=== PATIENT | male | born 1985 | race Two or more races ===

== ENCOUNTER 2022-08-21 22:11 | Emergency (ER) | payer SELFPAY ==
--- OUTSIDE RECORDS SUMMARY | 2022-08-21 22:16 | XMS REPORT | Continuity of Care Document ---
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 based on the EGFR.XX) CKD-EPI 2020 equation thatdo es not use a race coefficient. Additional information can be found at:[id number] cb_ egfr_summary_fl dieter 5.pdf (kidney.o rg) [Automated message] The system which generated this result transmit frances reference range : >=90 ml/min/1.73m2. The reference range was not used to interpret this result as normal/abnormal . BUN/Creatinine Ratio 26 (test code = BCRATIO) Glucose (test code = 104 mg/dL 74-106 N GLU) Calcium (test code = CA) 8.5 mg/dL 8.5-10.1 N Aspartate Amino 24 IU/L 10-34 N Transferase (test code = AST) Alanine Aminotransferase 30 IU/L 12-78 N (test code = ALT) Albumin Level (test code 3.3 g/dL 3.4-5.0 L = ALB) Bilirubin,Total (test 0.3 mg/dL 0.2-1.0 N code = BILIT) Total Protein (test code 6.2 g/dL 6.4-8.2 L = TP) Globulin (test code = 3 GLOB) Albumin/Globulin Ratio 1.1 ratio 1.2-3.0 L (test code = AGRATIO) Alkaline Phosphatase 110 IU/L 45-122 N (test code = ALP) [id number] 03:42:00 Test Item Value Reference Range Interpretation Comments Creatine Kinase (test code = CK) 578 U/L 39-308 H Creatine Kinase MB (test code = 6.4 ng/mL 0.5-3.6 H CKMBR) CKMB % (test code = CKMB%) 1.1 % 0.0-5.0 N Thyroid Stimulating [id number] 03:42:00 Test Item Value Reference Range Interpretation Comments Thyroid Stimulating Hormone (test 1.300 IU/mL 0.358-3.74 N code = TSH) Ethanol [id number] 03:42:00 Test Item Value Reference Range Interpretation Comments Ethanol (test code = ETOH) < 3 mg/dL 3-13 L Complete Blood Count Auto [id number] 03:40:00 Test Item Value Reference Range Interpretation Comments White Blood Count (test code = 8.1 x10 3/uL 4.8-10.8 N WBCT) Red Blood Count (test code = 4.46 x10 6/uL 4.60-6.20 L RBC) Hemoglobin (test code = HGBT) 14.1 g/dL 14.0-18.0 N Hematocrit (test code = HCTT) 41.1 % 38.0-52.0 N Mean Corpuscular Volume (test 92.2 fL 80.0-95.0 N code = MCV) Mean Corpuscular Hemoglobin 31.6 pg 26.0-32.0 N (test code = MCH) Mean Corpuscular HGB Conc (test 34.3 g/dL 31.0-36.0 N code = MCHC) Red Cell Distribution Width 12.5 % 11.5-14.5 N (test code = RDW) Platelet Count (test code = 228 x10 3/uL 140-440 N PLTT) Mean Platelet Volume (test code 10.9 fL 7.5-11.2 N = MPV) Immature Granulocytes % (Auto) 0.4 % (test code = IMMGRAN%) Neutrophils % (Auto) (test code 41.1 % = NE%) Lymphocytes % (Auto) (test code 45.5 % = LY%) Monocytes % (Auto) (test code = 7.5 % MO%) Eosinophils % (Auto) (test code 4.8 % = EO%) Basophils % (Auto) (test code = 0.7 % BA%) Immature Granulocytes # (Auto) 0.03 x10 3/uL (test code = IMMGRAN#) Neutrophils # (Auto) (test code 3.3 x10 3/uL 2.7-7.3 N = NE#) Lymphocytes # (Auto) (test code 3.7 x10 3/uL 0.8-3.5 H = LY#) Monocytes # (Auto) (test code = 0.6 x10 3/uL 0.3-0.9 N MO#) Eosinophils # (Auto) (test code 0.4 x10 3/uL 0.0-0.3 H = EO#) Basophils # (Auto) (test code = 0.1 x10 3/uL 0.0-0.1 N BA#) nRBC Abs (test code = NRBCA) 0 10>3/mcL nRBC Pct (test code = NRBCP) 0 % UA, Urinalysis Rflx Cult/[id number] 03:40:00 Test Item Value Reference Range Interpretation Comments Color,Urine (test code = UCOL) Yellow Yellow Clarity,Urine (test code = UCLAR) Clear Clear PH,Urine (test code = UPH.XX) 6.0 5.0-8.0 Specific [place],Urine (test code = 1.023 SGU 1.005-1.030 N USG) Blood,Urine (test code = UBLD) Negative Negative Protein,Urine (test code = UPRO) Negative Negative Glucose,Urine (UA) (test code = Negative Negative UGLU) Ketones,Urine (test code = UKET) Negative Negative Nitrate,Urine (test code = UNIT) Negative Negative Bilirubin,Urine (test code = UBIL) Negative Negative Urobilinogen,Urine (test code = 1.0 EU/dL Negative UURO) Leukocyte Esterase,Urine (test code Negative Negative = ULEU) Basic Metabolic [id number] 03:40:00 Test Item Value Reference Range Interpretation Comments SODIUM (test code = NA) 138 mmol/L 136-145 N Potassium,K (test code = K) 4.1 mmol/L 3.5-5.1 N Chloride (test code = CL) 106 mmol/L 98-107 N Carbon Dioxide (test code = 27 mmol/L 21-32 N CO2) Anion Gap (test code = GAP) 5 mmol/L 7-16 L Blood Urea Nitrogen (test code 18 mg/dL 7-18 N = BUN) Creatinine (test code = CREATT) 0.8 mg/dL 0.7-1.3 N Creatinine Clr Calc Pharmacy 140.11 mL/min (test code = CRCLPHA) Estimated GFR ( July > 60 mL/min/1.73m2 (test code = EGFRAA) Estimated GFR (Non Afr July > 60 mL/min/1.73m2 (test code = EGFRNAA) BUN/Creatinine Ratio (test code 23 = BCRATIO) Glucose (test code = GLU) 109 mg/dL 74-106 H Calcium (test code = CA) 8.6 mg/dL 8.5-10.1 N Complete Blood Count Auto [id number] 05:52:00 Test Item Value Reference Range Interpretation Comments White Blood Count (test code = 6.6 x10 3/uL 4.8-10.8 N WBCT) Red Blood Count (test code = 4.24 x10 6/uL 4.60-6.20 L RBC) Hemoglobin (test code = HGBT) 12.8 g/dL 14.0-18.0 L Hematocrit (test code = HCTT) 39.2 % 38.0-52.0 N Mean Corpuscular Volume (test 92.5 fL 80.0-95.0 N code = MCV) Mean Corpuscular Hemoglobin 30.2 pg 26.0-32.0 N (test code = MCH) Mean Corpuscular HGB Conc (test 32.7 g/dL 31.0-36.0 N code = MCHC) Red Cell Distribution Width 12.6 % 11.5-14.5 N (test code = RDW) Platelet Count (test code = 206 x10 3/uL 140-440 N PLTT) Mean Platelet Volume (test code 11.7 fL 7.5-11.2 H = MPV) Immature Granulocytes % (Auto) 0.5 % (test code = IMMGRAN%) Neutrophils % (Auto) (test code 40.0 % = NE%) Lymphocytes % (Auto) (test code 45.1 % = LY%) Monocytes % (Auto) (test code = 10.3 % MO%) Eosinophils % (Auto) (test code 3.2 % = EO%) Basophils % (Auto) (test code = 0.9 % BA%) Immature Granulocytes # (Auto) 0.03 x10 3/uL (test code = IMMGRAN#) Neutrophils # (Auto) (test code 2.6 x10 3/uL 2.7-7.3 L = NE#) Lymphocytes # (Auto) (test code 3.0 x10 3/uL 0.8-3.5 N = LY#) Monocytes # (Auto) (test code = 0.7 x10 3/uL 0.3-0.9 N MO#) Eosinophils # (Auto) (test code 0.2 x10 3/uL 0.0-0.3 N = EO#) Basophils # (Auto) (test code = 0.1 x10 3/uL 0.0-0.1 N BA#) nRBC Abs (test code = NRBCA) 0 10>3/mcL nRBC Pct (test code = NRBCP) 0 % Basic Metabolic [id number] 05:52:00 Test Item Value Reference Range Interpretation Comments SODIUM (test code = NA) 141 mmol/L 136-145 N Potassium,K (test code = K) 3.9 mmol/L 3.5-5.1 N Chloride (test code = CL) 109 mmol/L 98-107 H Carbon Dioxide (test code = 28 mmol/L 21-32 N CO2) Anion Gap (test code = GAP) 4 mmol/L 7-16 L Blood Urea Nitrogen (test code 12 mg/dL 7-18 N = BUN) Creatinine (test code = CREATT) 0.9 mg/dL 0.7-1.3 N Creatinine Clr Calc Pharmacy 120.37 mL/min (test code = CRCLPHA) Estimated GFR ( July > 60 mL/min/1.73m2 (test code = EGFRAA) Estimated GFR (Non Afr July > 60 mL/min/1.73m2 (test code = EGFRNAA) BUN/Creatinine Ratio (test code 13 = BCRATIO) Glucose (test code = GLU) 104 mg/dL 74-106 N Calcium (test code = CA) 8.1 mg/dL 8.5-10.1 L Comprehensive Metabolic [id number] 23:23:00 Test Item Value Reference Range Interpretation Comments SODIUM (test code = NA) 139 mmol/L 136-145 N Potassium,K (test code = K) 3.6 mmol/L 3.5-5.1 N Chloride (test code = CL) 104 mmol/L 98-107 N Carbon Dioxide (test code = CO2) 31 mmol/L 21-32 N Anion Gap (test code = GAP) 4 mmol/L 7-16 L Creatinine Clr Calc Pharmacy 98.48 mL/min (test code = CRCLPHA) Estimated GFR ( July > 60 mL/min/1.73m2 (test code = EGFRAA) Estimated GFR (Non Afr July > 60 mL/min/1.73m2 (test code = EGFRNAA) BUN/Creatinine Ratio (test code 15 = BCRATIO) Glucose (test code = GLU) 108 mg/dL 74-106 H Calcium (test code = CA) 7.8 mg/dL 8.5-10.1 L Bilirubin,Total (test code = 0.5 mg/dL 0.2-1.0 N BILIT) Aspartate Amino Transferase 11 IU/L 10-34 N (test code = AST) Alanine Aminotransferase (test 20 IU/L 12-78 N code = ALT) Globulin (test code = GLOB) 3 Albumin/Globulin Ratio (test 1.1 ratio 1.2-3.0 L code = AGRATIO) Alkaline Phosphatase (test code 121 IU/L 45-122 N = ALP) Blood Urea Nitrogen (test code = 16 mg/dL 7-18 BUN) Creatinine (test code = CREATT) 1.1 mg/dL 0.7-1.3 Total Protein (test code = TP) 5.7 g/dL 6.4-8.2 L Albumin Level (test code = ALB) 3.2 g/dL 3.4-5.0 L Complete Blood Count Auto [id number] 23:23:00 Test Item Value Reference Range Interpretation Comments White Blood Count (test code = 6.7 x10 3/uL 4.8-10.8 WBCT) Red Blood Count (test code = 4.15 x10 6/uL 4.60-6.20 L RBC) Hemoglobin (test code = HGBT) 12.6 g/dL 14.0-18.0 L Hematocrit (test code = HCTT) 38.1 % 38.0-52.0 Mean Corpuscular Volume (test 91.8 fL 80.0-95.0 code = MCV) Mean Corpuscular Hemoglobin 30.4 pg 26.0-32.0 N (test code = MCH) Mean Corpuscular HGB Conc (test 33.1 g/dL 31.0-36.0 code = MCHC) Red Cell Distribution Width 12.5 % 11.5-14.5 N (test code = RDW) Platelet Count (test code = 209 x10 3/uL 140-440 PLTT) Mean Platelet Volume (test code 11.8 fL 7.5-11.2 H = MPV) Immature Granulocytes % (Auto) 0.6 % (test code = IMMGRAN%) Neutrophils % (Auto) (test code 35.2 % = NE%) Lymphocytes % (Auto) (test code 51.5 % = LY%) Monocytes % (Auto) (test code = 9.0 % MO%) Eosinophils % (Auto) (test code 2.8 % = EO%) Basophils % (Auto) (test code = 0.9 % BA%) Immature Granulocytes # (Auto) 0.04 x10 3/uL (test code = IMMGRAN#) Neutrophils # (Auto) (test code 2.4 x10 3/uL 2.7-7.3 L = NE#) Lymphocytes # (Auto) (test code 3.4 x10 3/uL 0.8-3.5 N = LY#) Monocytes # (Auto) (test code = 0.6 x10 3/uL 0.3-0.9 N MO#) Eosinophils # (Auto) (test code 0.2 x10 3/uL 0.0-0.3 N = EO#) Basophils # (Auto) (test code = 0.1 x10 3/uL 0.0-0.1 N BA#) nRBC Abs (test code = NRBCA) 0 10>3/mcL nRBC Pct (test code = NRBCP) 0 % UA, Urinalysis Rflx Cult/[id number] 20:10:00 Test Item Value Reference Range Interpretation Comments Color,Urine (test code = UCOL) Yellow Yellow Clarity,Urine (test code = UCLAR) Clear Clear PH,Urine (test code = UPH.XX) 5.5 5.0-8.0 Specific [place],Urine (test code = 1.015 SGU 1.005-1.030 N USG) Blood,Urine (test code = UBLD) Negative Negative Protein,Urine (test code = UPRO) Negative Negative Glucose,Urine (UA) (test code = Negative Negative UGLU) Ketones,Urine (test code = UKET) Negative Negative Nitrate,Urine (test code = UNIT) Negative Negative Bilirubin,Urine (test code = UBIL) Negative Negative Urobilinogen,Urine (test code = 0.2 EU/dL Negative UURO) Leukocyte Esterase,Urine (test code Negative Negative = ULEU) SARS-CoV-2 Antigen (Rapid)[id number] 15:21:00 Test Item Value Reference Range Interpretation Comments SARS-CoV-2 Antigen Negative Negative The clini yinka performance (Rapid) (test code of rapid antigen = [id number]) diagnostic t estslargely depends on the circumstances i n which they are used.R apid antigen tests p erform best when the person is testedin the ea rly stages of infection wi th SARS-CoV-2 when viralload is generally hi ghest. They also may be inf ormative indiagnostic te sting situations in [facility] the person has akno wn exposure to a confirmed case of COVID-19. Rapid antigen tests can be us ed for screening testi ng in high-riskcongre gate settings in [facility] repeat testing could quicklyidentify persons with a SARS-CoV -2 infection to informinfection prevention and control [facility], thus preventingtrans mission.Taniya m: CDC.gov, Int erim Guidance for Ra pid Antigen Testingfor SARS -CoV-2- Updated 04.11;https://w ww.cdc.gov/ coronavirus/201 9-ncov/lab/ resources/antig en-tests-gu idelines.html Comment: SophiaComplete Blood Count Auto [id number] 11:20:00 Test Item Value Reference Range Interpretation Comments White Blood Count (test code = 16.3 x10 3/uL 4.8-10.8 H WBCT) Red Blood Count (test code = 5.83 x10 6/uL 4.60-6.20 N RBC) Hemoglobin (test code = HGBT) 17.8 g/dL 14.0-18.0 N Hematocrit (test code = HCTT) 50.1 % 38.0-52.0 N Mean Corpuscular Volume (test 85.9 fL 80.0-95.0 N code = MCV) Mean Corpuscular Hemoglobin 30.5 pg 26.0-32.0 N (test code = MCH) Mean Corpuscular HGB Conc (test 35.5 g/dL 31.0-36.0 N code = MCHC) Red Cell Distribution Width 12.2 % 11.5-14.5 N (test code = RDW) Platelet Count (test code = 300 x10 3/uL 140-440 N PLTT) Mean Platelet Volume (test code 11.5 fL 7.5-11.2 H = MPV) Immature Granulocytes % (Auto) 1.3 % (test code = IMMGRAN%) Neutrophils % (Auto) (test code 72.8 % = NE%) Lymphocytes % (Auto) (test code 16.0 % = LY%) Monocytes % (Auto) (test code = 8.0 % MO%) Eosinophils % (Auto) (test code 1.5 % = EO%) Basophils % (Auto) (test code = 0.4 % BA%) Immature Granulocytes # (Auto) 0.21 x10 3/uL (test code = IMMGRAN#) Neutrophils # (Auto) (test code 11.9 x10 3/uL 2.7-7.3 H = NE#) Lymphocytes # (Auto) (test code 2.6 x10 3/uL 0.8-3.5 N = LY#) Monocytes # (Auto) (test code = 1.3 x10 3/uL 0.3-0.9 H MO#) Eosinophils # (Auto) (test code 0.3 x10 3/uL 0.0-0.3 N = EO#) Basophils # (Auto) (test code = 0.1 x10 3/uL 0.0-0.1 N BA#) nRBC Abs (test code = NRBCA) 0 10>3/mcL nRBC Pct (test code = NRBCP) 0 % Comprehensive Metabolic [id number] 11:20:00 Test Item Value Reference Range Interpretation Comments SODIUM (test code = NA) 126 mmol/L 136-145 L Potassium,K (test code = K) 3.6 mmol/L 3.5-5.1 N Chloride (test code = CL) 90 mmol/L 98-107 L Carbon Dioxide (test code = CO2) 24 mmol/L 21-32 N Anion Gap (test code = GAP) 12 mmol/L 7-16 N Blood Urea Nitrogen (test code = 53 mg/dL 7-18 H BUN) Creatinine (test code = CREATT) 2.6 mg/dL 0.7-1.3 H Creatinine Clr Calc Pharmacy 40.56 mL/min (test code = CRCLPHA) Estimated GFR ( July 35 mL/min/1.73m2 (test code = EGFRAA) Estimated GFR (Non Afr July 30 mL/min/1.73m2 (test code = EGFRNAA) BUN/Creatinine Ratio (test code 20 = BCRATIO) Glucose (test code = GLU) 137 mg/dL 74-106 H Calcium (test code = CA) 10.0 mg/dL 8.5-10.1 N Bilirubin,Total (test code = 1.1 mg/dL 0.2-1.0 H BILIT) Aspartate Amino Transferase 13 IU/L 10-34 N (test code = AST) Alanine Aminotransferase (test 26 IU/L 12-78 N code = ALT) Total Protein (test code = TP) 8.9 g/dL 6.4-8.2 H Albumin Level (test code = ALB) 4.9 g/dL 3.4-5.0 N Globulin (test code = GLOB) 4 Albumin/Globulin Ratio (test 1.2 ratio 1.2-3.0 N code = AGRATIO) Alkaline Phosphatase (test code 156 IU/L 45-122 H = ALP) Coronavirus PCR, COVID19 [id number] 06:59:00 Test Item Value Reference Range Interpretation Comments Coronavirus PCR, COVID19 results, including Rapid (test code = Patient Name, or SARSCOV2) MRN, were called to Coronavirus PCR, COVID19 Reference Range: Rapid (test code = Negative PMMAOFD28.1) SARS-CoV-2 PCR Result: Negative by PCR (test code = SARS-CoV-2 PCR Result:) COVID-19 Status: AsymptomaticUA, Urinalysis Rflx Cult/[id number] 22:22:00 Test Item Value Reference Range Interpretation Comments Color,Urine (test code = UCOL) Yellow Y Clarity,Urine (test code = UCLAR) Clear Clear PH,Urine (test code = UPH.XX) 6.5 5.0-8.0 Specific [place],Urine (test code = 1.006 SGU 1.005-1.030 N USG) Blood,Urine (test code = UBLD) Negative Negative Protein,Urine (test code = UPRO) Negative Negative Glucose,Urine (UA) (test code = Negative Negative UGLU) Ketones,Urine (test code = UKET) Negative Negative Nitrate,Urine (test code = UNIT) Negative Negative Bilirubin,Urine (test code = UBIL) Negative Negative Urobilinogen,Urine (test code = 0.2 EU/dL Negative UURO) Leukocyte Esterase,Urine (test code Negative Negative = ULEU) Drug Screen,[id number] 22:22:00 Test Item Value Reference Range Interpretation Comments PCP Phencyclidine Screen,Urine (test Negative Negative code = PCPU) Amphetamine Screen,Urine (test code Negative Negative = AMPU) Opiate Screen,Urine (test code = Negative Negative UOPIS) Barbituates Screen,Urine (test code Negative Negative = BARBU) Benzodiazepines Screen,Urine (test Negative Negative code = UBENZS) Cocaine Screen,Urine (test code = Negative Negative UCOCS) Cannabinoid Screen,Urine (test code Negative Negative = UTHCS) Urine Drug pH (test code = UDRUGPH) 6.5 5.0-8.0 N [id number] 21:53:00 Test Item Value Reference Range Interpretation Comments Creatine Kinase (test code = CK) 424 U/L 39-308 H Creatine Kinase MB (test code = 6.5 ng/mL 0.5-3.6 H CKMBR) CKMB % (test code = CKMB%) 1.5 % 0.0-5.0 N Thyroid Stimulating [id number] 21:53:00 Test Item Value Reference Range Interpretation Comments Thyroid Stimulating Hormone (test 1.500 IU/mL 0.358-3.74 N code = TSH) Ethanol [id number] 21:53:00 Test Item Value Reference Range Interpretation Comments Ethanol (test code = ETOH) 8 mg/dL 3-13 N Rapid Plasma [id number] 21:53:00 Test Item Value Reference Range Interpretation Comments Rapid Plasma Reagin (test code = Non-Reactive Non-React RPR) Complete Blood Count Auto [id number] 21:53:00 Test Item Value Reference Range Interpretation Comments White Blood Count (test code = 11.4 x10 3/uL 4.8-10.8 H WBCT) Red Blood Count (test code = 4.39 x10 6/uL 4.60-6.20 L RBC) Hemoglobin (test code = HGBT) 13.5 g/dL 14.0-18.0 L Hematocrit (test code = HCTT) 41.8 % 38.0-52.0 N Mean Corpuscular Volume (test 95.2 fL 80.0-95.0 H code = MCV) Mean Corpuscular Hemoglobin 30.8 pg 26.0-32.0 N (test code = MCH) Mean Corpuscular HGB Conc (test 32.3 g/dL 31.0-36.0 N code = MCHC) Red Cell Distribution Width 12.3 % 11.5-14.5 N (test code = RDW) Platelet Count (test code = 236 x10 3/uL 140-440 N PLTT) Mean Platelet Volume (test code 10.4 fL 7.5-11.2 N = MPV) Immature Granulocytes % (Auto) 0.4 % (test code = IMMGRAN%) Neutrophils % (Auto) (test code 53.6 % = NE%) Lymphocytes % (Auto) (test code 35.4 % = LY%) Monocytes % (Auto) (test code = 6.9 % MO%) Eosinophils % (Auto) (test code 2.7 % = EO%) Basophils % (Auto) (test code = 1.0 % 0.0-2.0 N BA%) Immature Granulocytes # (Auto) 0.05 x10 3/uL (test code = IMMGRAN#) Neutrophils # (Auto) (test code 6.1 x10 3/uL 2.7-7.3 N = NE#) Lymphocytes # (Auto) (test code 4.1 x10 3/uL 0.8-3.5 H = LY#) Monocytes # (Auto) (test code = 0.8 x10 3/uL 0.3-0.9 N MO#) Eosinophils # (Auto) (test code 0.3 x10 3/uL 0.0-0.3 N = EO#) Basophils # (Auto) (test code = 0.1 x10 3/uL 0.0-0.1 N BA#) nRBC Abs (test code = NRBCA) 0 10>3/mcL nRBC Pct (test code = NRBCP) 0 % Comprehensive Metabolic [id number] 21:53:00 Test Item Value Reference Range Interpretation Comments SODIUM (test code = NA) 140 mmol/L 136-145 N Potassium,K (test code = K) 4.0 mmol/L 3.5-5.1 N Chloride (test code = CL) 105 mmol/L 98-107 N Carbon Dioxide (test code = CO2) 31 mmol/L 21-32 N Anion Gap (test code = GAP) 4 mmol/L 7-16 L Blood Urea Nitrogen (test code = 19 mg/dL 7-18 H BUN) Creatinine (test code = CREATT) 1.1 mg/dL 0.7-1.3 N Creatinine Clr Calc Pharmacy 97.13 mL/min (test code = CRCLPHA) Estimated GFR ( July > 60 mL/min/1.73m2 (test code = EGFRAA) Estimated GFR (Non Afr July > 60 mL/min/1.73m2 (test code = EGFRNAA) BUN/Creatinine Ratio (test code 17 = BCRATIO) Glucose (test code = GLU) 93 mg/dL 74-106 N Calcium (test code = CA) 8.8 mg/dL 8.5-10.1 N Bilirubin,Total (test code = 0.3 mg/dL 0.2-1.0 N BILIT) Aspartate Amino Transferase 19 IU/L 10-34 N (test code = AST) Alanine Aminotransferase (test 32 IU/L 12-78 N code = ALT) Total Protein (test code = TP) 6.6 g/dL 6.4-8.2 N Albumin Level (test code = ALB) 3.6 g/dL 3.4-5.0 N Globulin (test code = GLOB) 3 Albumin/Globulin Ratio (test 1.2 ratio 1.2-3.0 N code = AGRATIO) Alkaline Phosphatase (test code 126 IU/L 45-122 H = ALP) Urinalysis [id number] 20:30:27 Test Item Value Reference Range Interpretation Comments UA WBC (test code = UA WBC) 0-5 /HPF 0-5 UA RBC (test code = UA RBC) 0-4 /HPF 0-4 UA Bacteria (test code = UA Negative /HPF Negative Bacteria) UA Squam Epithelial (test code 0-20 /LPF 0-20 = UA Squam Epithelial) UA Hyal Cast (test code = UA 1-6 /LPF 1-6 Hyal Cast) Urinalysis with Culture, if [id number] 20:30:27 Test Item Value Reference Range Interpretation Comments UA Color (test code = UA Dk Yellow Yellow A Color) UA Appear (test code = Clear Clear UA Appear) UA pH (test code = UA 5.0 pH) UA Spec Grav (test code >1.030 SGU 1.005-1.030 H = UA Spec Grav) UA Glucose (test code = Negative Negative UA Glucose) UA Bili (test code = UA Negative Negative Bili) UA Ketones (test code = Negative Negative UA Ketones) UA Blood (test code = UA Negative Negative Blood) UA Protein (test code = Negative Negative UA Protein) UA Urobilinogen (test 1.0 EU/dL >0.2 code = UA Urobilinogen) UA Nitrite (test code = Negative Negative UA Nitrite) UA Leuk Est (test code = Negative Negative UA Leuk Est) UA Micro Ind? (test code Indicated Not Indicated A Re sult created by = UA Micro Ind?) rule [id number] Comprehensive Metabolic [id number] 19:25:56 Test Item Value Reference Range Interpretation Comments Sodium Level (test code = 141 mmol/L 136-145 Sodium Level) Potassium Level (test code = 4.9 mmol/L 3.5-5.1 Potassium Level) Chloride Level (test code = 109 mmol/L 98-107 H Chloride Level) CO2 (test code = CO2) 29 mmol/L 21-32 Anion Gap (test code = Anion 3 mmol/L 7-16 L Gap) BUN (test code = BUN) 17 mg/dL 7-18 Creatinine Level (test code = 0.9 mg/dL 0.7-1.3 Creatinine Level) Glucose Level (test code = 84 mg/dL 74-106 Glucose Level) Calcium Level (test code = 8.5 mg/dL 8.5-10.1 Calcium Level) Alk Phos (test code = Alk 117 IntlUnit/L 45-122 Phos) Bilirubin Total (test code = 0.7 mg/dL 0.2-1.0 Bilirubin Total) Albumin Level (test code = 3.9 g/dL 3.4-5.0 Albumin Level) Protein Total (test code = 6.7 g/dL 6.4-8.2 Protein Total) ALT (test code = ALT) 57 IntlUnit/L 12-78 AST (test code = AST) 30 IntlUnit/L - Comprehensive Metabolic [id number] 19:25:56 Test Item Value Reference Range Interpretation Comments Sodium Level (test code = 141 mmol/L 136-145 Sodium Level) Potassium Level (test code 4.9 mmol/L 3.5-5.1 = Potassium Level) Chloride Level (test code 109 mmol/L 98-107 H = Chloride Level) CO2 (test code = CO2) 29 mmol/L 21-32 Anion Gap (test code = 3 mmol/L 7-16 L Anion Gap) BUN (test code = BUN) 17 mg/dL 7-18 Creatinine Level (test 0.9 mg/dL 0.7-1.3 code = Creatinine Level) Glucose Level (test code = 84 mg/dL 74-106 Glucose Level) Calcium Level (test code = 8.5 mg/dL 8.5-10.1 Calcium Level) Alk Phos (test code = Alk 117 IntlUnit/L 45-122 Phos) Bilirubin Total (test code 0.7 mg/dL 0.2-1.0 = Bilirubin Total) Albumin Level (test code = 3.9 g/dL 3.4-5.0 Albumin Level) Protein Total (test code = 6.7 g/dL 6.4-8.2 Protein Total) ALT (test code = ALT) 57 IntlUnit/L 12-78 AST (test code = AST) 30 IntlUnit/L -34 eGFR AA (test code = eGFR >60 mL/min/1.73 m2 N AA) Comprehensive Metabolic [id number] 19:25:56 Test Item Value Reference Range Interpretation Comments Sodium Level (test code = 141 mmol/L 136-145 Sodium Level) Potassium Level (test code 4.9 mmol/L 3.5-5.1 = Potassium Level) Chloride Level (test code 109 mmol/L 98-107 H = Chloride Level) CO2 (test code = CO2) 29 mmol/L 21-32 Anion Gap (test code = 3 mmol/L 7-16 L Anion Gap) BUN (test code = BUN) 17 mg/dL 7-18 Creatinine Level (test 0.9 mg/dL 0.7-1.3 code = Creatinine Level) Glucose Level (test code = 84 mg/dL 74-106 Glucose Level) Calcium Level (test code = 8.5 mg/dL 8.5-10.1 Calcium Level) Alk Phos (test code = Alk 117 IntlUnit/L 45-122 Phos) Bilirubin Total (test code 0.7 mg/dL 0.2-1.0 = Bilirubin Total) Albumin Level (test code = 3.9 g/dL 3.4-5.0 Albumin Level) Protein Total (test code = 6.7 g/dL 6.4-8.2 Protein Total) ALT (test code = ALT) 57 IntlUnit/L 12-78 AST (test code = AST) 30 IntlUnit/L 10-34 eGFR AA (test code = eGFR >60 mL/min/1.73 m2 N AA) eGFR Non-AA (test code = >60 mL/min/1.73 m2 N eGFR Non-AA) Automated [id number] 19:15:39 Test Item Value Reference Range Interpretation Comments Neutro Auto (test code = Neutro Auto) 60.1 % N Lymph Auto (test code = Lymph Auto) 28.4 % N Walsh Auto (test code = Walsh Auto) 7.9 % N Eos, Auto (test code = Eos, Auto) 2.8 % N Basophil Auto (test code = Basophil 0.8 % N Auto) Neutro Absolute (test code = Neutro 4.5 x10 2.7-7.3 Absolute) Lymph Absolute (test code = Lymph 2.1 x10 0.8-3.5 Absolute) Walsh Absolute (test code = Walsh 0.6 x10 0.3-0.9 Absolute) Eos Absolute (test code = Eos 0.2 x10 0.0-0.3 Absolute) Baso Absolute (test code = Baso 0.1 x10 0.0-0.1 Absolute) Complete Blood Count with [id number] 19:15:38 Test Item Value Reference Range Interpretation Comments WBC (test code = WBC) 7.4 x10 4.8-10.8 RBC (test code = RBC) 4.76 x10 4.60-6.20 Hgb (test code = Hgb) 15.2 g/dL 14.0-18.0 Hct (test code = Hct) 44.8 % 38.0-52.0 MCV (test code = MCV) 94.1 fL 80.0-95.0 MCHC (test code = MCHC) 34.0 g/dL 31.0-36.0 RDW (test code = RDW) 15.5 % 11.5-14.5 H MCH (test code = MCH) 32.0 pg 26.0-32.0 Platelets (test code = 177 x10 140-440 Platelets) MPV (test code = MPV) 9.1 fL 7.5-11.2 Slide Review (test code Auto N Resu lt created by = Slide Review) GL_SET_SLIDE _REVIEW_A UTO URINE DRUG [id number] 01:32:00 Test Item Value Reference Range Interpretation Comments AMPHET (test code = NEGATIVE NEGATIVE This is an unconfirmed BAMP) screening. Resu lt are to be used for medical purposes (treat ment) only. Not inten ded for non-medical pur poses. Cut-off concent ration for a positive result for each drug: Amphetamine - 1 ,000 ng/ml Barbitura te - 200 ng/ml Benzodiaz epine - 200 ng/ml Canna binoids - 50 ng/ml Coca ine - 300 ng/ml Opiat es - 300 ng/ml PCP - 25 ng/ml BARBITURATES (test NEGATIVE NEGATIVE code = BBAR) BENZO (test code = NEGATIVE NEGATIVE BBENZ) CANNABS (test code = NEGATIVE NEGATIVE BCANN) COCAINE (test code = NEGATIVE NEGATIVE BCOC) OPIATES (test code = POSITIVE NEGATIVE A BOPI) PCP (test code = NEGATIVE NEGATIVE BMTPCP) [id number] 01:12:00 Test Item Value Reference Range Interpretation Comments GLUCOSE (test code = URGLU) NEGATIVE MG/DL NEG-100 BILIRUBN (test code = URBILI) NEGATIVE NEGATIVE KETONE (test code = URKET) NEGATIVE MG/DL NEGATIVE BLOOD (test code = URBLD) NEGATIVE UR PH (test code = URPH) 6.0 5.0-7.5 PROTEIN (test code = URPRO) NEGATIVE MG/DL NEGATIVE NITRITES (test code = URNIT) NEGATIVE NEGATIVE UROBILINGEN (test code = 0.2 EU/DL 0.2-1.0 URURO) LEUKOCYT (test code = URLEU) NEGATIVE NEGATIVE UA COLOR (test code = UA YELLOW YELLOW COLOR) CLARITY (test code = CLARITY) CLEAR CLEAR SP GRAV (test code = URSPGRAV) 1.006 1.000-1.025 UAMICRO (test code = UAMICRO) NO BLOOD ALCOHOL (ETOH)2019-03-23 00:23:00 Test Item Value Reference Range Interpretation Comments ALCOHOL BLOOD LEVEL <10 MG/DL 0-10 Results are to be used (test code = ALC BLD) for me dical purposes (treatment) onl y. Not intended for no n medical purpose s. [id number] 00:23:00 Test Item Value Reference Range Interpretation Comments SODIUM (test code = 138 MMOL/L 137-145 NA) K+ (test code = 3.7 MMOL/L 3.5-5.1 PLEASE NOTE NEW KSERUM) REFERENCE RANGE (S) IN EFFECT EFFECTIVE 010 - NEW ANALYZER (V ITROS 5600) CHLORIDE (test code 104 MMOL/L 98-107 = CL) CO2 (test code = 27 MMOL/L 22-30 CO2) BUN (test code = 15 MG/DL 9-20 BUN) CREA (test code = 0.8 MG/DL 0.8-1.5 CREA) GLUCOSE (test code 102 MG/DL 70-99 H Fasting glucose = GLUCOSE) normal <100 MG/ DL- [employer] recommendation* * CALCIUM (test code 9.1 MG/DL 8.4-10.2 = CABLOOD) TOTPROT (test code 6.2 G/DL 6.3-8.2 L = TOTPROT) ALBUMIN (test code 3.7 G/DL 3.5-5.0 = ALBSERUM) BILITOT (test code 0.4 MG/DL 0.2-1.3 = BILITOT) AST (test code = 26 U/L 15-46 AST) PHOSALK (test code 91 U/L 38-126 = PHOSALK) ALT (test code = 35 U/L 13-69 ALT) GFR (test code = 118 A GFR of >9 0 GFR) mL/min/1.73m2 mL/min/1.73m2 is considered norm al. CREATINE [id number] 00:23:00 Test Item Value Reference Range Interpretation Comments CK (test code = CK) 336 U/L 55-170 H [id number] 00:01:00 Test Item Value Reference Range Interpretation Comments WBC (test code = 7.8 K/UL 3.5-10.9 WBC) RBC (test code = 4.15 M/UL 4.3-5.7 L RBC) HGB (test code = 12.5 G/DL 13.0-17.9 L HGB) HCT (test code = 38.2 % 38-52 HCT) MCV (test code = 92.0 FL 80-98 MCV) MCH (test code = 30.1 PG 28-32 MCH) MCHC (test code = 32.7 G/DL 32.5-36.5 MCHC) RDW (test code = 13.2 % 11.5-14.5 RDW) PLT (test code = 230 K/UL 150-450 PLT) MPV (test code = 11.2 FL 7.4-10.4 H MPV) MANDIFF (test code = NO MANDIFF) SCAN (test code = NO SCAN) NEUT% (test code = 45.7 % 40-75 NEUT%) LYMPH% (test code = 41.6 % 24-44 LYMPH%) MONO% (test code = 7.7 % 0-13 MONO%) EOS% (test code = 3.4 % 0-4 EOS%) BASO % (test code = 0.8 % 0-2 BASO%) IG (test code = IG) 0 % 0-1 IG% (test code = 0.8 % 0-1 IG% = Metam yelocytes, IG%) Myelocytes, and Promyelocytes. (Immature neutr ophils not including " bands".) > 3% IG indic ates risk of sepsis NRBC% (test code = 0 /100 WBC NRBC%) ABS NEUT (test code 3.6 K/UL 1.2-7.2 = NEUT) CREATININE, RANDOM [id number] 18:36:00 Test Item Value Reference Range Interpretation Comments CREATININE URINE (BEAKER) (test 229.6 mg/dL code = 375) Reference Range: No NormalsSODIUM, RANDOM [id number] 18:36:00 Test Item Value Reference Range Interpretation Comments SODIUM URINE (BEAKER) (test code = < meq/L 243) Reference Range: No NormalsBASIC METABOLIC [id number] 17:59:00 Test Item Value Reference Range Interpretation Comments SODIUM (BEAKER) 137 meq/L 136-145 (test code = 381) POTASSIUM (BEAKER) 3.4 meq/L 3.5-5.1 L (test code = 379) CHLORIDE (BEAKER) 104 meq/L 98-107 (test code = 382) CO2 (BEAKER) (test 26 meq/L 22-29 code = 355) BLOOD UREA NITROGEN 30 mg/dL 7-21 H (BEAKER) (test code = 354) CREATININE (BEAKER) 1.10 mg/dL 0.57-1.25 (test code = 358) GLUCOSE RANDOM 133 mg/dL 70-105 H (BEAKER) (test code = 652) CALCIUM (BEAKER) 8.2 mg/dL 8.4-10.2 L (test code = 697) EGFR (BEAKER) (test 77 mL/min/1.73 ESTIMA FRANCES GFR IS code = 1092) sq m NOT ACCURATE CREATININE CLEARANCE IN PREDICTING GLOMERULAR FILTRATION RATE . ESTIMATED GFR I S NOT APPLICABLE FOR DIALYSIS PATIEN TS. CREATINE KINASE (CK)2019-03-15 17:59:00 Test Item Value Reference Range Interpretation Comments CREATINE KINASE TOTAL (BEAKER) (test 271 U/L 29-200 H code = 380) CREATINE KINASE (CK)2019-03-15 11:12:00 Test Item Value Reference Range Interpretation Comments CREATINE KINASE TOTAL (BEAKER) (test 506 U/L 29-200 H code = 380) BASIC METABOLIC [id number] 08:43:00 Test Item Value Reference Range Interpretation Comments SODIUM (BEAKER) 133 meq/L 136-145 L (test code = 381) POTASSIUM (BEAKER) 4.2 meq/L 3.5-5.1 (test code = 379) CHLORIDE (BEAKER) 102 meq/L 98-107 (test code = 382) CO2 (BEAKER) (test 23 meq/L 22-29 code = 355) BLOOD UREA NITROGEN 39 mg/dL 7-21 H (BEAKER) (test code = 354) CREATININE (BEAKER) 2.19 mg/dL 0.57-1.25 H (test code = 358) GLUCOSE RANDOM 87 mg/dL 70-105 (BEAKER) (test code = 652) CALCIUM (BEAKER) 9.0 mg/dL 8.4-10.2 (test code = 697) EGFR (BEAKER) (test 35 mL/min/1.73 ESTIMA FRANCES GFR IS code = 1092) sq m NOT ACCURATE CREATININE CLEARANCE IN PREDICTING GLOMERULAR FILTRATION RATE . ESTIMATED GFR I S NOT APPLICABLE FOR DIALYSIS PATIEN TS. TROPONIN [id number] 08:04:00 Test Item Value Reference Range Interpretation Comments TROPONIN I (BEAKER) (test code = 397) < ng/mL 0.00-0.03 Troponin I (TnI) levels must be interpreted in the context of the presenting symptoms and the clinical findings. Elevated TnI levels indicate myocardial damage, but are not specific for ischemic heart disease. Elevated TnI levels are seen in patients with other cardiac conditions (including myocarditis and congestive heart failure), and slight TnI elevations occur in patients with other conditions, including sepsis, renal failure, acidosis, acute neurological disease, and persistent tachyarrhythmia.CBC W/PLT COUNT & AUTO DIFFERENTIAL 2019-03-15 07:36:00 Test Item Value Reference Range Interpretation Comments WHITE BLOOD CELL COUNT (BEAKER) 9.8 K/ L 3.5-10.5 (test code = 775) RED BLOOD CELL COUNT (BEAKER) 5.13 M/ L 4.63-6.08 (test code = 761) HEMOGLOBIN (BEAKER) (test code = 15.6 GM/DL 13.7-17.5 410) HEMATOCRIT (BEAKER) (test code = 46.1 % 40.1-51.0 411) MEAN CORPUSCULAR VOLUME (BEAKER) 89.9 fL 79.0-92.2 (test code = 753) MEAN CORPUSCULAR HEMOGLOBIN 30.4 pg 25.7-32.2 (BEAKER) (test code = 751) MEAN CORPUSCULAR HEMOGLOBIN CONC 33.8 GM/DL 32.3-36.5 (BEAKER) (test code = 752) RED CELL DISTRIBUTION WIDTH 13.2 % 11.6-14.4 (BEAKER) (test code = 412) PLATELET COUNT (BEAKER) (test 225 K/CU MM 150-450 code = 756) MEAN PLATELET VOLUME (BEAKER) 10.5 fL 9.4-12.4 (test code = 754) NUCLEATED RED BLOOD CELLS 0 /100 WBC 0-0 (BEAKER) (test code = 413) NEUTROPHILS RELATIVE PERCENT 45 % (BEAKER) (test code = 429) LYMPHOCYTES RELATIVE PERCENT 41 % (BEAKER) (test code = 430) MONOCYTES RELATIVE PERCENT 10 % (BEAKER) (test code = 431) EOSINOPHILS RELATIVE PERCENT 2 % (BEAKER) (test code = 432) BASOPHILS RELATIVE PERCENT 1 % (BEAKER) (test code = 437) NEUTROPHILS ABSOLUTE COUNT 4.40 K/ L 1.78-5.38 (BEAKER) (test code = 670) LYMPHOCYTES ABSOLUTE COUNT 3.97 K/ L 1.32-3.57 H (BEAKER) (test code = 414) MONOCYTES ABSOLUTE COUNT (BEAKER) 1.02 K/ L 0.30-0.82 H (test code = 415) EOSINOPHILS ABSOLUTE COUNT 0.18 K/ L 0.04-0.54 (BEAKER) (test code = 416) BASOPHILS ABSOLUTE COUNT (BEAKER) 0.08 K/ L 0.01-0.08 (test code = 417) IMMATURE GRANULOCYTES-RELATIVE 1 % 0-1 PERCENT (BEAKER) (test code = 2801) BASIC METABOLIC [id number] 01:32:00 Test Item Value Reference Range Interpretation Comments SODIUM (BEAKER) 137 meq/L 136-145 (test code = 381) POTASSIUM (BEAKER) 4.4 meq/L 3.5-5.1 Specimen slightly (test code = 379) hemolyzed CHLORIDE (BEAKER) 104 meq/L 98-107 (test code = 382) CO2 (BEAKER) (test 23 meq/L 22-29 code = 355) BLOOD UREA NITROGEN 29 mg/dL 7-21 H (BEAKER) (test code = 354) CREATININE (BEAKER) 3.12 mg/dL 0.57-1.25 H Specimen slightly (test code = 358) hemolyzed GLUCOSE RANDOM 104 mg/dL 70-105 (BEAKER) (test code = 652) CALCIUM (BEAKER) 9.1 mg/dL 8.4-10.2 (test code = 697) EGFR (BEAKER) (test 23 mL/min/1.73 ESTIMA FRANCES GFR IS code = 1092) sq m NOT ACCURATE CREATININE CLEARANCE IN PREDICTING GLOMERULAR FILTRATION RATE . ESTIMATED GFR I S NOT APPLICABLE FOR DIALYSIS PATIEN TS. [id number] 01:29:00 Test Item Value Reference Range Interpretation Comments LIPASE (BEAKER) (test 37 U/L This i s a corrected code = 749) result. Previou s result was 44 U/L on at 0028 CDT CORRECTED REPORTHEPATIC FUNCTION [id number] 01:29:00 Test Item Value Reference Range Interpretation Comments TOTAL PROTEIN 8.2 gm/dL 6.0-8.3 Specimen onur waggoner (BEAKER) (test code = hemoly zed 770) ALBUMIN (BEAKER) 5.4 g/dL 3.5-5.0 H Specimen eugenie russell (test code = 1145) hemolyzed This is a corrected resul t. Previous result was 5.8 g/dL on 03/15/20 19 at 0029 CDT BILIRUBIN TOTAL 0.7 mg/dL 0.2-1.2 Specimen jaxon stearns (BEAKER) (test code = hemoly zedThis is a 377) corrected resul t. Previous result was 0.8 mg/dL on 019 at 0029 CDT BILIRUBIN DIRECT 0.2 mg/dL 0.1-0.5 Specimen eugenie russell (BEAKER) (test code = hemoly zed 706) ALKALINE PHOSPHATASE 144 U/L 40-150 This is a corrected (BEAKER) (test code = result . Previous result 346) was 143 U/L on 03/15/2019 at 00 29 CDT AST (SGOT) (BEAKER) 31 U/L 5-34 H Specimen markedly (test code = 353) hemolyzedT his is a corrected resul t. Previous result was 52 U/L on 9 at 0029 CDT ALT (SGPT) (BEAKER) 20 U/L 6-55 Specimen markedly (test code = 347) hemolyzedT his is a corrected resul t. Previous result was 26 U/L on 9 at 0029 CDT CORRECTED REPORTTROPONIN [id number] 01:27:00 Test Item Value Reference Range Interpretation Comments TROPONIN I (BEAKER) (test code = 0.01 ng/mL 0.00-0.03 397) Troponin I (TnI) levels must be interpreted in the context of the presenting symptoms and the clinical findings. Elevated TnI levels indicate myocardial damage, but are not specific for ischemic heart disease. Elevated TnI levels are seen in patients with other cardiac conditions (including myocarditis and congestive heart failure), and slight TnI elevations occur in patients with other conditions, including sepsis, renal failure, acidosis, acute neurological disease, and persistent tachyarrhythmia.URINALYSIS W/ [id number] 01:14:00 Test Item Value Reference Range Interpretation Comments COLOR (BEAKER) (test code = Yellow 470) CLARITY (BEAKER) (test code = Slightly Cloudy 469) SPECIFIC GRAVITY UA (BEAKER) >= 1.005-1.030 (test code = 468) PH UA (BEAKER) (test code = 5.0 5.0-9.0 467) PROTEIN UA (BEAKER) (test 100 mg/dL Negative A code = 464) GLUCOSE UA (BEAKER) (test Negative Negative code = 365) KETONES UA (BEAKER) (test Negative Negative code = 371) BILIRUBIN UA (BEAKER) (test Positive Negative A code = 462) BLOOD UA (BEAKER) (test code Negative Negative = 461) NITRITE UA (BEAKER) (test Negative Negative code = 465) LEUKOCYTE ESTERASE UA Negative Negative (BEAKER) (test code = 466) UROBILINOGEN UA (BEAKER) 0.2 mg/dL 0.2-1.0 (test code = 463) RBC UA (BEAKER) (test code = < /HPF 519) WBC UA (BEAKER) (test code = < /HPF 520) BACTERIA (BEAKER) (test code Moderate = 517) HYALINE CASTS (BEAKER) (test > /LPF code = 514) GRANULAR CASTS (BEAKER) (test < /LPF code = 515) CALCIUM OXALATE CRYSTALS Few (BEAKER) (test code = 518) SOURCE(BEAKER) (test code = 2795) RAPID DRUG SCREEN, [id number] 00:59:00 Test Item Value Reference Range Interpretation Comments METHAMPHETAMINE SCREEN (BEAKER) Positive Negative A (test code = 1435) BARBITURATE URINE (BEAKER) (test Negative Negative code = 725) BENZODIAZEPINE SCREEN URINE (BEAKER) Negative Negative (test code = 726) COCAINE (METAB.) SCREEN (BEAKER) Negative Negative (test code = 1164) METHADONE SCREEN (BEAKER) (test code Negative Negative = 1436) OPIATE SCREEN URINE (BEAKER) (test Positive Negative A code = 734) CANNABINOID SCREEN URINE (BEAKER) Negative Negative (test code = 727) TRICYCLIC SCREEN (BEAKER) (test code Negative Negative = 1437) AMPHETAMINE SCREEN URINE (BEAKER) Positive Negative A (test code = 399) PHENCYCLIDINE SCREEN URINE (BEAKER) Negative Negative (test code = 608) DRUG CUTOFF CONC.Methamphetamine 1000 ng/mLCocaine 300 ng/mLCannabinoid 50 ng/mLBenzodiazepine 300 ng/mLTricyclic 1000 ng/mLBarbiturate 300 ng/mLPhencyclidine 25 ng/mLAmphetamine 1000 ng/mLOpiate 300 ng/mLMethadone 300 ng/mLThis assay provides an unconfirmed qualitative test result for the clinical management of patients in emergency situations. Chain of custody not maintained. Some cbqo-sdf-vujkznd medications, as well as adulterants, may cause inaccurate results. Clinical correlation should be applied. A more comprehensive drug screen or confirmation of a detected drug may be performed upon request.BASIC METABOLIC [id number] 00:39:00 Test Item Value Reference Range Interpretation Comments SODIUM (BEAKER) 136 meq/L 136-145 (test code = 381) POTASSIUM (BEAKER) 4.1 meq/L 3.5-5.1 Specimen slightly (test code = 379) hemolyzed CHLORIDE (BEAKER) 99 meq/L 98-107 (test code = 382) CO2 (BEAKER) (test 22 meq/L 22-29 code = 355) BLOOD UREA NITROGEN 27 mg/dL 7-21 H (BEAKER) (test code = 354) CREATININE (BEAKER) 3.50 mg/dL 0.57-1.25 H Specimen slightly (test code = 358) hemolyzed GLUCOSE RANDOM 106 mg/dL 70-105 H (BEAKER) (test code = 652) CALCIUM (BEAKER) 9.8 mg/dL 8.4-10.2 (test code = 697) EGFR (BEAKER) (test 20 mL/min/1.73 ESTIMA FRANCES GFR IS code = 1092) sq m NOT ACCURATE CREATININE CLEARANCE IN PREDICTING GLOMERULAR FILTRATION RATE . ESTIMATED GFR I S NOT APPLICABLE FOR DIALYSIS PATIEN TS. RAD, CHEST, 1 VIEW, NON [id number] 23:59:00Reason for exam:->SHORTNESS OF BREATHShould this be performed at the bedside?->YesFINAL REPORT RAD, CHEST, 1 VIEW, NON DEPT CLINICAL HISTORY: SHORTNESS OF BREATH TECHNIQUE: Single view of the chest. COMPARISON: None IMPRESSION: There are no focal infiltrates or effusions. No pneumothorax. The cardiomediastinal silhouette is magnified by technique. The osseous structures appear intact. Right lung calcified granuloma. Signed: Derek Vazquez MDReport Verified Rickie e/Time: 03/14/2019 23:59:57 CBC W/PLT COUNT & AUTO [id number] 23:45:00 Test Item Value Reference Range Interpretation Comments WHITE BLOOD CELL COUNT (BEAKER) 13.6 K/ L 3.5-10.5 H (test code = 775) RED BLOOD CELL COUNT (BEAKER) 6.22 M/ L 4.63-6.08 H (test code = 761) HEMOGLOBIN (BEAKER) (test code = 18.7 GM/DL 13.7-17.5 H 410) HEMATOCRIT (BEAKER) (test code = 54.4 % 40.1-51.0 H 411) MEAN CORPUSCULAR VOLUME (BEAKER) 87.5 fL 79.0-92.2 (test code = 753) MEAN CORPUSCULAR HEMOGLOBIN 30.1 pg 25.7-32.2 (BEAKER) (test code = 751) MEAN CORPUSCULAR HEMOGLOBIN CONC 34.4 GM/DL 32.3-36.5 (BEAKER) (test code = 752) RED CELL DISTRIBUTION WIDTH 13.0 % 11.6-14.4 (BEAKER) (test code = 412) PLATELET COUNT (BEAKER) (test 305 K/CU MM 150-450 code = 756) MEAN PLATELET VOLUME (BEAKER) 10.6 fL 9.4-12.4 (test code = 754) NEUTROPHILS RELATIVE PERCENT 62 % (BEAKER) (test code = 429) LYMPHOCYTES RELATIVE PERCENT 27 % (BEAKER) (test code = 430) MONOCYTES RELATIVE PERCENT 8 % (BEAKER) (test code = 431) EOSINOPHILS RELATIVE PERCENT 1 % (BEAKER) (test code = 432) BASOPHILS RELATIVE PERCENT 0 % (BEAKER) (test code = 437) NEUTROPHILS ABSOLUTE COUNT 8.47 K/ L 1.78-5.38 H (BEAKER) (test code = 670) LYMPHOCYTES ABSOLUTE COUNT 3.69 K/ L 1.32-3.57 H (BEAKER) (test code = 414) MONOCYTES ABSOLUTE COUNT (BEAKER) 1.07 K/ L 0.30-0.82 H (test code = 415) EOSINOPHILS ABSOLUTE COUNT 0.12 K/ L 0.04-0.54 (BEAKER) (test code = 416) BASOPHILS ABSOLUTE COUNT (BEAKER) 0.06 K/ L 0.01-0.08 (test code = 417) IMMATURE GRANULOCYTES-RELATIVE 1 % 0-1 PERCENT (BEAKER) (test code = 2801) Throat Culture Strep [id number] 14:45:35Streptococcus Group A screen negativeDrugs of Abuse Screen [id number] 02:17:53 Test Item Value Reference Range Interpretation Comments Amphetamine Screen Ur Positive Negative A (test code = Amphetamine Screen Ur) Barbiturate Screen Ur Negative Negative (test code = Barbiturate Screen Ur) Benzodiazepines Ur Negative Negative (test code = Benzodiazepines Ur) Cocaine Screen Ur Negative Negative (test code = Cocaine Screen Ur) Opiate Screen Ur (test Negative Negative code = Opiate Screen Ur) U PCP Scrn (test code Negative Negative = U PCP Scrn) Cannabinoid Screen Ur Positive Negative A This a ssay provides a (test code = preliminary enrique lytical Cannabinoid Screen Ur) test result intended for medical purpose s only. Confirmation wi ll be sent to a Refer ence Lab only upon addit ional physician reque st.The cutoff levels u sed for this assay are as followsAmphetam ine 1000 ng/mlBarbituate s 300 ng/mlBenzodiaze pine 300 ng.ml Cocaine 300 ng/mlOpiates 30 0 ng/mlPCP 25 ng/ mlTHC 50 ng/ml pH Ur (test code = pH 5.5 5.0-9.0 Ur) Urinalysis with Culture, if [id number] 02:06:12 Test Item Value Reference Range Interpretation Comments UA Color (test code = Yellow Yellow UA Color) UA Appear (test code = Clear Clear UA Appear) UA pH (test code = UA 5.5 pH) UA Spec Grav (test 1.012 SGU 1.005-1.030 code = UA Spec Grav) UA Glucose (test code Negative Negative = UA Glucose) UA Bili (test code = Negative Negative UA Bili) UA Ketones (test code Negative Negative = UA Ketones) UA Blood (test code = Negative Negative UA Blood) UA Protein (test code Negative Negative = UA Protein) UA Urobilinogen (test 0.2 EU/dL >0.2 code = UA Urobilinogen) UA Nitrite (test code Negative Negative = UA Nitrite) UA Leuk Est (test code Negative Negative = UA Leuk Est) UA Micro Ind? (test Not Indicated Not Indicated Result created by code = UA Micro Ind?) rule [id number] _IN D Comprehensive Metabolic [id number] 01:10:09 Test Item Value Reference Range Interpretation Comments Sodium Level (test code = 139 mmol/L 136-145 Sodium Level) Potassium Level (test code = 3.9 mmol/L 3.5-5.1 Potassium Level) Chloride Level (test code = 105 mmol/L 98-107 Chloride Level) CO2 (test code = CO2) 27 mmol/L 21-32 Anion Gap (test code = Anion 7 mmol/L 7-16 Gap) BUN (test code = BUN) 20 mg/dL 7-18 H Creatinine Level (test code = 0.9 mg/dL 0.7-1.3 Creatinine Level) Glucose Level (test code = 112 mg/dL 74-106 H Glucose Level) Calcium Level (test code = 8.4 mg/dL 8.5-10.1 L Calcium Level) Alk Phos (test code = Alk 129 IntlUnit/L 45-122 H Phos) Bilirubin Total (test code = 0.3 mg/dL 0.2-1.0 Bilirubin Total) Albumin Level (test code = 3.3 g/dL 3.4-5.0 L Albumin Level) Protein Total (test code = 6.5 g/dL 6.4-8.2 Protein Total) ALT (test code = ALT) 34 IntlUnit/L 12-78 AST (test code = AST) 10 IntlUnit/L 10-34 Comprehensive Metabolic [id number] 01:10:09 Test Item Value Reference Range Interpretation Comments Sodium Level (test code = 139 mmol/L 136-145 Sodium Level) Potassium Level (test code 3.9 mmol/L 3.5-5.1 = Potassium Level) Chloride Level (test code 105 mmol/L 98-107 = Chloride Level) CO2 (test code = CO2) 27 mmol/L 21-32 Anion Gap (test code = 7 mmol/L 7-16 Anion Gap) BUN (test code = BUN) 20 mg/dL 7-18 H Creatinine Level (test 0.9 mg/dL 0.7-1.3 code = Creatinine Level) Glucose Level (test code = 112 mg/dL 74-106 H Glucose Level) Calcium Level (test code = 8.4 mg/dL 8.5-10.1 L Calcium Level) Alk Phos (test code = Alk 129 IntlUnit/L 45-122 H Phos) Bilirubin Total (test code 0.3 mg/dL 0.2-1.0 = Bilirubin Total) Albumin Level (test code = 3.3 g/dL 3.4-5.0 L Albumin Level) Protein Total (test code = 6.5 g/dL 6.4-8.2 Protein Total) ALT (test code = ALT) 34 IntlUnit/L 12-78 AST (test code = AST) 10 IntlUnit/L 10-34 eGFR AA (test code = eGFR >60 mL/min/1.73 m2 N AA) Lipase [id number] 01:10:09 Test Item Value Reference Range Interpretation Comments Lipase Level (test code = 141 IntlUnit/L 73-393 Lipase Level) Comprehensive Metabolic [id number] 01:10:09 Test Item Value Reference Range Interpretation Comments Sodium Level (test code = 139 mmol/L 136-145 Sodium Level) Potassium Level (test code 3.9 mmol/L 3.5-5.1 = Potassium Level) Chloride Level (test code 105 mmol/L 98-107 = Chloride Level) CO2 (test code = CO2) 27 mmol/L 21-32 Anion Gap (test code = 7 mmol/L 7-16 Anion Gap) BUN (test code = BUN) 20 mg/dL 7-18 H Creatinine Level (test 0.9 mg/dL 0.7-1.3 code = Creatinine Level) Glucose Level (test code = 112 mg/dL 74-106 H Glucose Level) Calcium Level (test code = 8.4 mg/dL 8.5-10.1 L Calcium Level) Alk Phos (test code = Alk 129 IntlUnit/L 45-122 H Phos) Bilirubin Total (test code 0.3 mg/dL 0.2-1.0 = Bilirubin Total) Albumin Level (test code = 3.3 g/dL 3.4-5.0 L Albumin Level) Protein Total (test code = 6.5 g/dL 6.4-8.2 Protein Total) ALT (test code = ALT) 34 IntlUnit/L 12-78 AST (test code = AST) 10 IntlUnit/L 10-34 eGFR AA (test code = eGFR >60 mL/min/1.73 m2 N AA) eGFR Non-AA (test code = >60 mL/min/1.73 m2 N eGFR Non-AA) Complete Blood Count with [id number] 00:44:21 Test Item Value Reference Range Interpretation Comments WBC (test code = WBC) 8.9 x10 4.8-10.8 RBC (test code = RBC) 4.35 x10 4.60-6.20 L Hgb (test code = Hgb) 13.8 g/dL 14.0-18.0 L MCV (test code = MCV) 93.1 fL 80.0-95.0 Hct (test code = Hct) 40.5 % 38.0-52.0 MCHC (test code = MCHC) 34.0 g/dL 31.0-36.0 RDW (test code = RDW) 12.3 % 11.5-14.5 MCH (test code = MCH) 31.7 pg 26.0-32.0 Platelets (test code = 233 x10 140-440 Platelets) MPV (test code = MPV) 8.8 fL 7.5-11.2 Slide Review (test code Auto N Resu lt created by = Slide Review) GL_SET_SLIDE _REVIEW_A UTO Automated [id number] 00:44:21 Test Item Value Reference Range Interpretation Comments Neutro Auto (test code = Neutro Auto) 47.2 % N Lymph Auto (test code = Lymph Auto) 38.3 % N Walsh Auto (test code = Walsh Auto) 11.3 % N Eos, Auto (test code = Eos, Auto) 2.4 % N Basophil Auto (test code = Basophil 0.8 % N Auto) Neutro Absolute (test code = Neutro 4.2 x10 2.7-7.3 Absolute) Lymph Absolute (test code = Lymph 3.4 x10 0.8-3.5 Absolute) Walsh Absolute (test code = Walsh 1.0 x10 0.3-0.9 H Absolute) Eos Absolute (test code = Eos 0.2 x10 0.0-0.3 Absolute) Baso Absolute (test code = Baso 0.1 x10 0.0-0.1 Absolute) Streptococcus A Screen Rapid w/ Reflex [id number] 00:28:03 Test Item Value Reference Range Interpretation Comments Strep A Scn (test code = Strep A Negative Negative Scn) Influenza A [id number] 00:27:55 Test Item Value Reference Range Interpretation Comments Influenza A Ag (test Negative Negative Childre n tend to shed code = Influenza A Ag) virus more abundantly and for longer period of time than ad ults. Therefore, test ing specimens from adults will often yiel d lower sensitivity casey n testing specime ns from children. Influenza B [id number] 00:27:55 Test Item Value Reference Range Interpretation Comments Influenza B Ag (test Negative Negative Childre n tend to shed code = Influenza B Ag) virus more abundantly and for longer period of time than ad ults. Therefore, test ing specimens from adults will often yiel d lower sensitivity casey n testing specime ns from children. XR chest V Medical [address] [address] Patient Name: Chuckie Elizabeth Medical Record#: [id number] Address: [address] [place] [address] [facility]/State/Zip: [place] [address]: Mikey Styles Insurance: Self Pay /Age/Sex: 1985/37/M Admit/Reg Date: 08/01/[address]: Raman Carver NP [facility] PCP: Valdo Agrawal Md MD Date of Service: 08/01/22 Order (s): XR chest 1V CPT Code: 05042 Report Number: [id number] Reason for Exam: psych clearance Clinical history: Auditory hallucinations, psychosis, substance abuse, psychiatric evaluation and medical clearance COMPARISON:: 03/01/2022 X-ray chest one view: Cardiomediastinal structures are within normal limits. Nopleural fluid or pulmonary infiltrates are identified. The bony architecture appears intact, where adequately seen. IMPRESSION: No active cardiopulmonary process is identified. Dictated By: Fernandez Shields MD 08/01/22703 Signed By: Fernandez Shields MD 08/01/22710 TD/TT: 08/01/22703 Tech: [id number] cc: PCPNO; [id number]* Raman Carver NP; Pcp- Md Nghia MDCT abdomen pelvis wo contrast [address] [address] Patient Name: Chuckie Elizabeth Medical Record#: [id number] Address: [address] [place] [address] City/State/Zip: [place] [address]: Malik Tsai MD Insurance: Self Pay /Age/Sex: 1985 37/M Admit/Reg Date: 03/01/[address]: Radha Eisenberg NP Location: [facility]/ PCP: Md SHALONDA Sanford Date of Service: 03/01/22 Order (s): CT abdomen pelvis wo contrast CPT Code: 57787 Report Number: [id number] Reason for Exam: Abdominal Pain Clinical history: Decreased appetite, abdominal pain, nausea and vomiting CT abdomen and pelvis without contrast Multiplanar reformatted images of the abdomen and pelvis were obtained without intravenous contrast There are no acute lung base infiltrates or pleural effusions. There are no space-occupying lesions of the liver. There is no evidence of biliary tree dilatation.The gallbladder, spleen, adrenal glands and pancreas are normal. No cortical renal masses, calculi, hydronephrosis or perinephric collections are noted. The abdominal aorta is normal in caliber. Thereis no evidence of retroperitoneal lymphadenopathy. There is a small umbilical hernia with herniationof fat. The gastrointestinal gas pattern is nonspecific. The appendix is normal. No free intraperitoneal fluid is noted. The urinary bladderis unremarkable. Osseous structures are grossly normal where adequately imaged. IMPRESSION: 1. No evidence of obstructive or inflammatory changes of the gastrointestinal tract 2. No evidence of nephrolithiasis or obstructive uropathy 3. Small umbilical hernia with herniation of fat 4. Normal-appearingappendix Radiation dose lowering techniques were used with automated exposure control, adjusting themA according to patient's size. Dictated By: Fernandez Shields MD 03/01/221426 Signed By: Fernandez Shields MD 03/01/221437 TD/TT: 03/01/221426 Tech: [id number] cc: PCPNO; [id number]* Radha Eisenberg NP; Pcp-Md Nghia MDXR chest 1V Medical [address] [address] Patient Name: Chuckie Elizabeth Medical Record#: [id number] Address: [address] [place] [address] City/State/Zip: [place] [address]: Malik Tsai MD i nsurance: Self Pay /Age/Sex: 1985/37/M Admit/Reg Date: 03/01/[address]: Radha Eisenberg NP Location: [facility]/ PCP: PcpMd SHALONDA Cardenas Date of Service: 03/01/22 Order (s): XR chest 1V CPT Code: 26368 Report Number: [id number] Reason for Exam: Shortness of Breath Clinical history: Dyspnea, bipolar disorder X-ray chest one view: Comparison: 09/14/2020 Cardiomediastinal structures arewithin normal limits. No pleural fluid or pulmonary infiltrates are identified. The bony architecture appears intact, where adequately seen. IMPRESSION: No active cardiopulmonary process is identified. Dictated By: Fernandez Shields MD 03/01/22916 Signed By: Fernandez Shields MD 03/01/22923 TD/TT:03/01/22916 Tech: [facility] cc: PCP; [id number]* Radha Eisenberg, SLOAN; Pcp-None,Md LIZ
[2022-08-21] MEDS ORDERED: NA CHLORIDE 0.9% 0 ML ONE (23:29)
[2022-08-21 23:42] LABS: Urine Blood Negative (Negative); Urine Glucose Negative (Negative); Urine Protein Negative (Negative)
[2022-08-22 00:03] LABS: Barbiturates NEGATIVE (NEGATIVE); Benzodiazepines NEGATIVE (NEGATIVE); Cocaine NEGATIVE (NEGATIVE); METHAMPHETAM NEGATIVE (NEGATIVE); Methadone NEGATIVE (NEGATIVE); Opiates NEGATIVE (NEGATIVE); Phencyclidine NEGATIVE (NEGATIVE); THC Cannibis NEGATIVE (NEGATIVE)
[2022-08-22 00:17] LABS: SARS-CoV-2 Antigen Rapid Res Negative (Negative)
[2022-08-22 00:23] LABS: Absolute Lymphocytes (CBC) 3.8 K/uL (0.7-4.9); Lymphocytes % 41.2 % (15.3-44.8); MCV 93.9 fL (80-100); MPV 9.1 fL (7.6-11.3); RBC Red Blood Cell Count 4.47 M/uL (4.33-5.43)
--- NOTE | 2022-08-22 00:25 | ER ---
Nurse's Notes [facility] Name: Chuckie Elizabeth Age: 37 yrs Sex: Male : 1985 Arrival Date: 08/21/2022 Time: 22:15 Bed 17 Private MD: Diagnosis: Suicidal ideations;Bipolar disorder, unspecified;Auditory hallucinations Presentation: 08/21 22:40 Chief complaint: Patient states: he is hearing voices and wants help he was at [facility] for 50 hours but was discharged he is taking Keppra for absence seizures and psych meds for Bipolar and PTSD is on several medications. Coronavirus screen: At this time, the client does not indicate any symptoms associated with coronavirus-19. Ebola Screen: No symptoms or risks identified at this time. Initial Sepsis Screen: Does the patient meet any 2 criteria? No. Patient's initial sepsis screen is negative. Does the patient have a suspected source of infection? No. Patient's initial sepsis screen is negative. Risk Assessment: Do you want to hurt yourself or someone else? Patient reports no desire to harm self or others. Onset of symptoms was August 17, 2022. 22:40 Method Of Arrival: Ambulatory 22:40 Acuity: RA 2 bb Historical: - Allergies: 22:46 No Known Allergies; bb - PMHx: 22:46 Bipolar disorder; PTSD; bb - Immunization history:: Client reports having NOT received the Covid vaccine. - Social history:: Smoking status: Patient/guardian denies using tobacco, but has a distant history of tobacco abuse. Screenin/31 00:11 [facility] ED Fall Risk Assessment (Adult) Score/Fall Risk Level 0 - 2 = Low Risk. Abuse as6 screen: Denies threats or abuse. Denies injuries from another. Nutritional screening: No deficits noted. Tuberculosis screening: No symptoms or risk factors identified. Assessment: 08/21 22:50 General: Appears in no apparent distress. Behavior is calm, cooperative. Pain: Denies as6 pain. Neuro: Level of Consciousness is awake, alert, obeys commands, Oriented to person, place, time, situation. Cardiovascular: Capillary refill < 3 seconds Patient's skin is warm and dry. Respiratory: Respiratory effort is even, unlabored, Respiratory pattern is regular, symmetrical. Psych: 08/22 00:12 Interventions: Removed personal items and placed in bag. Patient placed in hospital as6 gown. Searched person for dangerous items. Urine collected and sent for urine drug test. Belonging list filled out. 00:13 [place] Suicide Severity Screening: In the past month, have you wished you were as6 or wished you could go to sleep and not wake up? Patient responds "yes." Based off the client's responses additional C-SSRS screening is required. "In the past month, have you actually had any thoughts of killing yourself?" Patient responds "no." "In your lifetime, have you ever done anything, started to do anything, or prepared to do anything to end your life?" Patient responds "no.". Subjective: Patient's mood is appropriate Delusions are denied, Hallucinations are auditory, Having thoughts of suicide. Denies suicidal plan. Objective: Patient is cooperative, Speech is normal, Affect is appropriate. Safety Checks: Personal items have been removed. Door is open. No visitors are present at this time. Pt denies substance abuse. Commitment: Patient will be a voluntary commitment. Vital Signs: 08/21 22:40 BP 134 / 89; Pulse 75; Resp 16 S; Temp 98.3(O); Pulse Ox 99% on R/A; Weight 82 kg (R); bb Height 6 ft. 0 in. (182.88 cm) (R); Pain 0/10; 22:40 Body Mass Index 24.52 (82.00 kg, 182.88 cm) bb ED Course: 22:15 Patient arrived in ED. ja2 22:21 Jimi Rodriguez MD is Attending Physician. [facility] 22:46 Triage completed. bb 22:46 Arm band placed on Patient placed in an exam room, on a stretcher. bb 22:52 José Antonio Baum, KULDIP is Primary Nurse. as6 08/22 00:11 Placed in gown. Bed in low position. Call light in reach. as6 00:12 No provider procedures requiring assistance completed. as6 00:15 initiated a transfer with Patricia from [facility]. mw2 00:56 faxed over [facility] exclusionary form and patient clinicals to [facility]. mw2 02:[address] Rodriguez with the Doctor from [facility]. mw2 02:16 administrative approval given by Carolyn Paris/ patient has been accepted to [address]/ Dr. Logan accepted the patient in transfer/report to be called to [phone]. 03:30 Patient did not have IV access during this emergency room visit. as6 Administered Medications: 00:01 Not Given (Other Intervention Used): NS 0.9% 1000 ml IV at 1 bolus Per protocol; 1000 as6 mL bolus Medication: 00:12 VIS not applicable for this client. as6 Outcome: 00:24 ER care complete, transfer ordered by MD. hernandez 03:30 Transferred by ground EMS to [facility], Transfer form completed. X-rays as6 sent w/ patient. 03:30 Condition: stable 03:30 Instructed on the need for transfer. 03:30 Patient left the ED. as6 Signatures: Jimi Rodriguez MD MD cha Ballard, Brenda, RN RN Isis Hunt [facility] Ana Gunn José Antonio Santoro, RN RN as6
--- NOTE | 2022-08-22 00:25 | EDPHYS ---
Physician Documentation [facility] Name: Chuckie Elizabeth Age: 37 yrs Sex: Male : 1985 Arrival Date: 08/21/2022 Time: 22:15 Bed 17 Private MD: ERON Physician Jimi Rodriguez HPI: 08/22 00:14 This 37 yrs old Male presents to ER via Ambulatory with complaints of Psych mary Problem, Suicidal Ideation. 00:14 The patient presents to the emergency department with anxiety, depression, psychosis, mary has experienced auditory hallucinations. Onset: The symptoms/episode began/occurred 1 week(s) ago. Past psychiatric history: Prior diagnosis: bipolar disorder, ptsd. Associated signs and symptoms: Pertinent positives; depression, suicide ideation, drill to the brain. Severity of symptoms: At their worst the symptoms were mild moderate in the emergency department the symptoms are unchanged. The patient has not experienced similar symptoms in the past. Historical: - Allergies: 08/21 22:46 No Known Allergies; bb - PMHx: 22:46 Bipolar disorder; PTSD; bb - Immunization history:: Client reports having NOT received the Covid vaccine. - Social history:: Smoking status: Patient/guardian denies using tobacco, but has a distant history of tobacco abuse. ROS: 08/22 00:16 Constitutional: Negative for fever, chills, and weight loss, Eyes: Negative for injury, mary pain, redness, and discharge, ENT: Negative for injury, pain, and discharge, Neck: Negative for injury, pain, and swelling, Cardiovascular: Negative for chest pain, palpitations, and edema, Respiratory: Negative for shortness of breath, cough, wheezing, and pleuritic chest pain, Abdomen/GI: Negative for abdominal pain, nausea, vomiting, diarrhea, and constipation, Back: Negative for injury and pain, : Negative for injury, bleeding, discharge, and swelling, MS/Extremity: Negative for injury and deformity, Skin: Negative for injury, rash, and discoloration, Neuro: Negative for headache, weakness, numbness, tingling, and seizure, Allergy/Immunology: Negative for hives, rash, and allergies, Endocrine: Negative for neck swelling, polydipsia, polyuria, polyphagia, and marked weight changes, Hematologic/Lymphatic: Negative for swollen nodes, abnormal bleeding, and unusual bruising. Psych: Positive for depression, auditory hallucinations, suicidal ideation. Exam: 00:16 Constitutional: This is a well developed, well nourished patient who is awake, alert, mary and in no acute distress. Head/Face: Normocephalic, atraumatic. Eyes: Pupils equal round and reactive to light, extra-ocular motions intact. Lids and lashes normal. Conjunctiva and sclera are non-icteric and not injected. Cornea within normal limits. Periorbital areas with no swelling, redness, or edema. ENT: Nares patent. No nasal discharge, no septal abnormalities noted. Tympanic membranes are normal and external auditory canals are clear. Oropharynx with no redness, swelling, or masses, exudates, or evidence of obstruction, uvula midline. Mucous membranes moist. Neck: Trachea midline, no thyromegaly or masses palpated, and no cervical lymphadenopathy. Supple, full range of motion without nuchal rigidity, or vertebral point tenderness. No Meningismus. Chest/axilla: Normal chest wall appearance and motion. Nontender with no deformity. No lesions are appreciated. Cardiovascular: Regular rate and rhythm with a normal S1 and S2. No gallops, murmurs, or rubs. Normal PMI, no JVD. No pulse deficits. Respiratory: Lungs have equal breath sounds bilaterally, clear to auscultation and percussion. No rales, rhonchi or wheezes noted. No increased work of breathing, no retractions or nasal flaring. Abdomen/GI: Soft, non-tender, with normal bowel sounds. No distension or tympany. No guarding or rebound. No evidence of tenderness throughout. Back: No spinal tenderness. No costovertebral tenderness. Full range of motion. Male : Normal genitalia with no discharge or lesions. Skin: Warm, dry with normal turgor. Normal color with no rashes, no lesions, and no evidence of cellulitis. MS/ Extremity: Pulses equal, no cyanosis. Neurovascular intact. Full, normal range of motion. Neuro: Awake and alert, GCS 15, oriented to person, place, time, and situation. Cranial nerves II-XII grossly intact. Motor strength 5/5 in all extremities. Sensory grossly intact. Cerebellar exam normal. Normal gait. 00:16 Psych: Behavior/mood is pleasant, Affect is calm, Oriented to person, place, time, Patient has no thoughts/intents to harm self or others. Judgement / Insight is normal. Memory is normal. Recent memory is intact. Remote memory is intact. Delusions/hallucinations are present and described as hearing voices. 00:21 ECG was reviewed by the Attending Physician. [facility] Vital Signs: 08/21 22:40 BP 134 / 89; Pulse 75; Resp 16 S; Temp 98.3(O); Pulse Ox 99% on R/A; Weight 82 kg (R); bb Height 6 ft. 0 in. (182.88 cm) (R); Pain 0/10; 22:40 Body Mass Index 24.52 (82.00 kg, 182.88 cm) bb MDM: 22:21 Patient medically screened. [facility] 08/22 00:19 Differential diagnosis: acute psychotic break, depression, psychosis secondary to [facility] non-compliance. Data reviewed: vital signs, nurses notes, lab test result(s), EKG. Consideration of Admission/Observation Patient was admitted/placed on observation. Escalation of care including admission/observation considered. Management of patient was discussed with the following: Healthcare Economics Consultant: psych . I considered the following discharge prescriptions or medication management in the emergency department Medications were administered in the Emergency Department. See MAR. Care significantly affected by the following chronic conditions: psych, ptsd and bipolar. 08/21 22:22 Order name: Acetaminophen; Complete Time: [facility] 08/21 22:22 Order name: Basic Metabolic Panel; Complete Time: [facility] 08/21 22:22 Order name: CBC with Diff; Complete Time: [facility] 08/21 22:22 Order name: ETOH Level; Complete Time: [facility] 08/21 22:22 Order name: Hepatic Function; Complete Time: [facility] 08/21 22:22 Order name: PT-INR; Complete Time: [facility] 08/21 22:22 Order name: Ptt, Activated; Complete Time: [facility] 08/21 22:22 Order name: Salicylate; Complete Time: [facility] 08/21 22:22 Order name: Urine Drug Screen; Complete Time: 00:23 [facility] 08/21 22:22 Order name: EKG; Complete Time: 22:23 [facility] 08/21 22:22 Order name: EKG - Nurse/Tech; Complete Time: 23:22 [facility] 08/21 22:22 Order name: SARS RAPID; Complete Time: 00:23 [facility] 08/21 23:43 Order name: Urine Dipstick-Ancillary; Complete Time: 00: [facility] 08/21 22:22 Order name: Labs collected and sent; Complete Time: 00: mary 08/21 22:22 Order name: Suicide Precautions; Complete Time: 00: mary 08/21 22:22 Order name: Suicide Screening ([place]); Complete Time: 00: [facility] 08/21 22:22 Order name: Urine Dipstick-Ancillary (obtain specimen); Complete Time: 00: [facility] EC: Rate is 56 beats/min. Rhythm is regular. QRS [place] is Normal. AR interval is normal. QRS mary interval is normal. QT interval is normal. No Q waves. T waves are Normal. No ST changes noted. Clinical impression: NSR w/ Non-specific ST/T Changes and No evidence of ischemia. Interpreted by me. Reviewed by me. Administered Medications: 00:01 Not Given (Other Intervention Used): NS 0.9% 1000 ml IV at 1 bolus Per protocol; 1000 as6 mL bolus Disposition Summary: 08/22/22 00:24 Transfer Ordered Transfer Location: [facility] mary Reason: Higher level of care mary Condition: Fair mary Problem: new mary Symptoms: have improved mary Accepting Physician: to psych(08/22/22 03:30) as6 Diagnosis - Suicidal ideations mary - Bipolar disorder, unspecified mary - Auditory hallucinations mary Forms: - Medication Reconciliation Form mary - SBAR form mary Signatures: Dispatcher [employer] EDUT Jimi Rodriguez MD MD cha Ballard, Brenda RN José Antonio Wells RN RN as6 Corrections: (The following items were deleted from the chart) 00:08/21 22:22 IV Saline Lock ordered. mary as6 08/22 03:30 00:24 to psych mary as6
[2022-08-22 00:27] LABS: Protime INR 0.99
[2022-08-22 00:34] LABS: ALT/SGPT 24 U/L (16-61); AST/SGOT 8 U/L (15-37); Albumin 3.6 g/dL (3.4-5.0); Alkaline Phosphatase 100 U/L (45-117); BUN Blood Urea Nitrogen 15 mg/dL (7-18); Bicarbonate 31 mmol/L (21-32); Bilirubin Total 0.2 mg/dL (0.2-1.0); Glomerular Filtration Rate 86 ml/min (=/>90); Glucose Level 101 mg/dL (74-106); Potassium 4.2 mmol/L (3.5-5.1); Protein, Total 6.6 g/dL (6.4-8.2); Sodium Level 139 mmol/L (136-145)
[2022-08-22 00:35] LABS: Bilirubin Direct < 0.1 mg/dL (0-0.2)
[2022-08-22 03:36] VITALS: BP 134/89; TEMP 98.3; O2SAT 99
--- NOTE | 2022-08-22 16:54 | EKG ---
Test Date: 2022-08-21 Test Time: 23:19:47 Military Administrative Technician: RV MEASUREMENT RESULTS: Intervals: Rate: 56 LA: 148 QRSD: 78 QT: 374 QTc: 360 [place]: P: 59 LA: 148 QRS: 81 T: 53 INTERPRETIVE STATEMENTS: Sinus bradycardia Otherwise normal ECG No previous ECG available for comparison Electronically Signed On 08-22-22 16:53:19 SURGICAL SERVICES MANAGER by Ze Urbano
== END 2022-08-22 03:30 | disposition short-term general hospital (02) ==
LOC: ER 22:11
DX: R45.851 Suicidal ideations (principal); F31.9 Bipolar disorder, unspecified; Z20.822 Contact with and (suspected) exposure to COVID-19
CPT/HCPCS: 36415; 80048; 80076; 80307; 81003; 85025; 85610; 85730; 87811; 93005; G0480; J7030